=== PATIENT | male | born 1985 | race Hispanic/Latino ===

== ENCOUNTER 2022-07-03 11:39 | Day surgery (SDC) | payer SELFPAY ==
[~2022-07-03] VITALS: Ht 172.7 cm; Wt 71.7 kg
[2022-07-03 15:08] VITALS: BP 140/89
== END 2022-07-03 15:00 | disposition home or self-care (01) | DRG 694 ==
LOC: ORM 11:39
PROVIDERS: ATTEND Urology
PROC: 0TF3XZZ Fragmentation in Right Kidney Pelvis, External Approach (ICD-10-PCS; principal; 2022-07-03)
DX: N20.0 Calculus of kidney (principal)